=== PATIENT | female | born 1995 | race Two or more races ===

== ENCOUNTER 2018-07-06 18:14 | Emergency (ER) | payer MEDICAID, OTHER ==
[~2018-07-06] VITALS: Ht 167.6 cm; Wt 80.7 kg
[~2018-07-06 18:14] MED LIST: AMOXICILLIN500 MG ORAL; AUGMENTIN TAB875 MG ORAL; BACTRIM-DS1 EA ORAL; CEPHALEXIN500 MG ORAL; KEFLEX500 MG ORAL
[2018-07-06 18:25] VITALS: BP 111/69
[2018-07-06] MEDS ORDERED: prenatal vits (18:27)
--- NOTE | 2018-07-06 18:38 | Emergency Room Report ---
History of Present Illness General Chief Complaint: Pelvic Pain Source: Patient Present Illness HPI 23-year-old female presents to the emergency department complaining of 5 out of 10 in severity frontal headache 3 days with several episodes of lower abdominal cramping 3x today. Pt. reports nasal congestion, rhinorrhea and facial pressure x 3 days as well. pt. states she believes she has URI but wanted to check for UTI. Denies photophobia or acute onset of BUTTERFIELD. pt. states she has not taken any medications for her symptoms as she was not sure what she is allowed to take during . Patient reports that she is 17 weeks and has had IUP established, she states she is waiting to find out the sex of the baby. She does report some increase in urinary frequency she denies dysuria or hematuria. Patient denies vaginal bleeding or discharge. Patient denies fevers or chills. Patient is . No complications thus far in her , and no complications with previous . Denies trauma or fall. Denies N/V/C/D. Allergies: Coded Allergies: No Known Allergies (Verified Allergy, Unknown, 05/18/10) Patient History Past Medical History: see triage record Past Surgical History: none Pertinent Family History: none Last Menstrual Period: March 08, 2018 Now: Yes - 17 weeks : 2 Para: 1 Reviewed Nursing Documentation: PMH: Agreed; PSxH: Agreed Nursing Documentation-PMH Past Medical History: No Stated History Review of Systems All Other Systems: negative except mentioned in HPI Physical Exam Vital Signs Date Time Temp Pulse Resp B/P (MAP) Pulse Ox O2 Delivery O2 Flow Rate FiO2 07/06/18 18:22 98.2 87 18 111/69 100 Room Air Sp02 EP Interpretation: reviewed, normal General Appearance: no apparent distress, alert, GCS 15, non-toxic Head: normocephalic, atraumatic Eyes: bilateral eye normal inspection, bilateral eye PERRL, bilateral eye EOMI , bilateral eye other - no photophobia ENT: hearing grossly normal, normal voice, TMs + canals normal, uvula midline, nasal congestion, pharyngeal erythema - mild pharyngeal erythema no exudates Neck: full range of motion, no meningismus, no bony tend Respiratory: chest non-tender, lungs clear, normal breath sounds, no respiratory distress, no accessory muscle use, no wheezing, speaking full sentences Cardiovascular #1: regular rate, rhythm Gastrointestinal: normal bowel sounds, non tender, soft, non-distended, no guarding Genitourinary: normal inspection, no CVA tenderness Musculoskeletal: back normal, gait/station normal, normal range of motion, non- tender Neurologic: alert, oriented x3, responsive, motor strength/tone normal, sensory intact, normal gait, speech normal, grossly normal Psychiatric: judgement/insight normal Skin: normal color, no rash, warm/dry, well hydrated Lymphatic: no adenopathy Medical Decision Making PA Attestation Dr. barrera is my supervising Physician whom patient management has been discussed with. Diagnostic Impression: Primary Impression: Sinus headache Additional Impressions: Upper respiratory infection, viral Threatened miscarriage ER Course 23-year-old female presents to the emergency department complaining of 5 out of 10 in severity frontal headache 3 days with several episodes of lower abdominal cramping 3x today. Pt. reports nasal congestion, rhinorrhea and facial pressure x 3 days as well. pt. states she believes she has URI but wanted to check for UTI. Denies photophobia or acute onset of BUTTER[place]. pt. states she has not taken any medications for her symptoms as she was not sure what she is allowed to take during . Patient reports that she is 17 weeks and has had IUP established, she states she is waiting to find out the sex of the baby. She does report some increase in urinary frequency she denies dysuria or hematuria. Patient denies vaginal bleeding or discharge. Patient denies fevers or chills. Patient is . No complications thus far in her , and no complications with previous . Denies trauma or fall. Denies N/V/C/D. Ddx considered but are not limited to: , ectopic ,Spontaneous , Ovarian torsion, Ovarian cyst. PID, acute appendicitis, gall stones. Vital signs: are WNL, pt. is afebrile H&PE are most consistent with: URI with viral symptoms, noevidence of bacterial infection at this time. Will do urinalysis and check for UTI, no photophobia so meningitis is of low suspicion. As patient is not currently having any abdominal pain at this time and she denies vaginal bleeding or discharge I do not feel that an ultrasound would change my management of this patient in any way. Is nontoxic in appearance in no acute distress. Will perform bedside ultrasound to measure heart rate and evaluated for any free fluids. ORDERS: -Urine hcg- Positive - Blood/RH type and screen- see attached labs -Pelvic US Bedside: HR of 146ish- no free fluid noted. ED INTERVENTIONS: None at this time. - Tylenol PO -Reglan PO -pt. reports BUTTERFIELD has improved on re-assessment. Discussed with this patient that her symptoms are most likely which she initially thought to be upper respiratory infection. Discussed with this patient reusing for not performing full OB ultrasound and she verbalizes her agreement and understanding. patient was given strict ED return precautions and also instructed to have [facility] [employer] follow-up within 48 hours. DISCHARGE: At this time pt. is stable for d/c to home. Will provide printed patient care instructions, and any necessary prescriptions. Care plan and follow up instructions have been discussed with the patient prior to discharge. Labs Test 07/06/18 18:20 Urine Color Pale yellow Urine Appearance Clear Urine pH 6.5 (4.5-8.0) Urine Specific [place] 1.010 (1.005-1.035) Urine Protein Negative (NEGATIVE) Urine Glucose (UA) Negative (NEGATIVE) Urine Ketones Negative (NEGATIVE) Urine Blood Negative (NEGATIVE) Urine Nitrite Negative (NEGATIVE) Urine Bilirubin Negative (NEGATIVE) Urine Urobilinogen Normal MG/DL (0.0-1.0) Urine Leukocyte Esterase 1+ (NEGATIVE) Urine RBC 0-2 /HPF (0 - 2) Urine WBC 2-4 /HPF (0 - 2) Urine Squamous Epithelial Cells Few /LPF (NONE/OCC) Urine Bacteria Few /HPF (NONE) Last Vital Signs Date Time Temp Pulse Resp B/P (MAP) Pulse Ox O2 Delivery O2 Flow Rate FiO2 07/06/18 18:22 98.2 87 18 111/69 100 Room Air Disposition: HOME, SELF-CARE Condition: Stable Scripts Cetirizine Hcl (ZYRTEC) 10 Mg Capsule 10 MG ORAL DAILY, #30 CAP 0 Refills Prov: Nelida Hardy 07/06/18 Acetaminophen* (TYLENOL EXTRA STRENGTH*) 500 Mg Tablet 500 MG ORAL Q6H PRN for Mild Pain/Temp > 100.5, #20 TAB 0 Refills Prov: Nelida Hardy 07/06/18 Patient Instructions: Upper Respiratory Infection, Adult, [id number] Additional Instructions: Take medications as directed. Follow up with a OBGYN within 3 days, even if your symptoms have resolved. Return sooner to ED if new symptoms occur, or current symptoms become worse. - Please note that this Emergency Department Report was dictated using [employer] consultant technology software, occasionally this can lead to erroneous entry secondary to interpretation by the dictation equipment. Nelida Hardy Jul 06, 2018 18:38
[2018-07-06 18:56] LABS: APPEARANCE,URINE CLEAR; BILIRUBIN, URINE NEGATIVE (NEGATIVE); COLOR,URINE PALE YELLOW; GLUCOSE, URINE (UA) NEGATIVE (NEGATIVE); KETONES,URINE NEGATIVE (NEGATIVE); LEUKOCYTE ESTERASE ,URINE 1+ (NEGATIVE); NITRITE,URINE NEGATIVE (NEGATIVE); PH,URINE 6.5 (4.5-8.0); PROTEIN,URINE NEGATIVE (NEGATIVE); UROBILINOGEN,URINE NORMAL MG/DL (0.0-1.0)
[2018-07-06] MEDS ORDERED: ZYRTEC10 M3 ORAL (19:32)
[2018-07-06] MEDS ORDERED: TYLENOL EXTRA500 MG ORAL (19:32)
[2018-07-06 19:55] VITALS: BP 111/69
== END 2018-07-06 19:55 | disposition home or self-care (01) ==
LOC: EMR 18:40
DX: O20.0 Threatened abortion (principal); O98.812 Other maternal infectious and parasitic diseases complicating pregnancy, second trimester; J06.9 Acute upper respiratory infection, unspecified; R51 Headache; Z3A.17 17 weeks gestation of pregnancy
CPT/HCPCS: 81003; 99284

== ENCOUNTER 2018-08-22 18:47 | Emergency (ER) | payer MEDICAID ==
[~2018-08-22] VITALS: Ht 167.6 cm; Wt 84.8 kg
[~2018-08-22 18:47] MED LIST changes: +CORTISPORIN EAR10 ML OTIC; +IBUPROFEN200 MG ORAL; +IBUPROFEN600 MG ORAL; +TYLENOL EXTRA500 MG ORAL; +ZYRTEC10 M3 ORAL; +prenatal vits
[2018-08-22 19:29] LABS: APPEARANCE,URINE CLEAR; BILIRUBIN, URINE NEGATIVE (NEGATIVE); COLOR,URINE PALE YELLOW; GLUCOSE, URINE (UA) NEGATIVE (NEGATIVE); KETONES,URINE NEGATIVE (NEGATIVE); LEUKOCYTE ESTERASE ,URINE 1+ (NEGATIVE); NITRITE,URINE NEGATIVE (NEGATIVE); PH,URINE 6 (4.5-8.0); PROTEIN,URINE NEGATIVE (NEGATIVE); UROBILINOGEN,URINE NORMAL MG/DL (0.0-1.0)
[2018-08-22 19:40] VITALS: BP 97/46
--- NOTE | 2018-08-22 19:40 | NUR ---
ED Nurse Note: Patient presents to ED c/o lower back pain for 1x day. Patient states she is 24 weeks . Patient AOx4, VSS, ambulatory with steady gait, no s/s of acute distress noted at this time. patient seen by ERMD at bedside. Patient reports 7/10 pain.
--- NOTE | 2018-08-22 20:41 | Emergency Room Report ---
History of Present Illness General Chief Complaint: Back Pain-No Injury Source: Patient Present Illness HPI 23-year-old female presents to the emergency department complaining of 8 out of 10 in severity low back pain since awakening this morning. Patient denies trauma or fall she denies fevers, chills, recent spinal procedures or urinary frequency, urgency or dysuria. Patient reports that she is 24 weeks and has had IUP established with her FRONT OFFICE ASSISTANT and sees her FRONT OFFICE ASSISTANT regularly. Patient denies abdominal pain or cramping she denies vaginal discharge or bleeding. Patient is with no prior complications in her previous . She denies nausea, vomiting, fevers or chills. Patient states that she has not attempted to take any medications for her symptoms. Allergies: Coded Allergies: No Known Allergies (Verified , 05/18/10) Patient History Past Medical History: see triage record Past Surgical History: none Pertinent Family History: none Now: Yes - 24 weeks : 2 Para: 1 Reviewed Nursing Documentation: PMH: Agreed; PSxH: Agreed Nursing Documentation-PMH Past Medical History: No Stated History Review of Systems All Other Systems: negative except mentioned in HPI Physical Exam Vital Signs Date Time Temp Pulse Resp B/P (MAP) Pulse Ox O2 Delivery O2 Flow Rate FiO2 08/22/18 19:07 98.2 76 18 97/46 99 Room Air Sp02 EP Interpretation: reviewed, normal General Appearance: no apparent distress, alert, GCS 15, non-toxic Head: normocephalic, atraumatic Eyes: bilateral eye normal inspection, bilateral eye PERRL ENT: hearing grossly normal, normal voice Neck: full range of motion Respiratory: lungs clear, normal breath sounds, speaking full sentences Cardiovascular #1: regular rate, rhythm Gastrointestinal: normal bowel sounds, non tender, soft, other - gravid Genitourinary: normal inspection, no CVA tenderness Musculoskeletal: back normal, gait/station normal, normal range of motion, non- tender, tender - mild paraspinal ttp to the lumbar musculature, no midline ttp, no step-off, no obvious deformities. Neurologic: alert, oriented x3, responsive, motor strength/tone normal, sensory intact, normal gait, speech normal, grossly normal Psychiatric: judgement/insight normal Skin: normal color, no rash, warm/dry, well hydrated Medical Decision Making PA Attestation Dr. barrera is my supervising Physician whom patient management has been discussed with. Diagnostic Impression: Primary Impression: Back pain Qualified Codes: M54.5 - Low back pain ER Course 23-year-old female presents to the emergency department complaining of 8 out of 10 in severity low back pain since awakening this morning. Patient denies trauma or fall she denies fevers, chills, recent spinal procedures or urinary frequency, urgency or dysuria. Patient reports that she is 24 weeks and has had IUP established with her FRONT OFFICE ASSISTANT and sees her FRONT OFFICE ASSISTANT regularly. Patient denies abdominal pain or cramping she denies vaginal discharge or bleeding. Patient is with no prior complications in her previous . She denies nausea, vomiting, fevers or chills. Patient states that she has not attempted to take any medications for her symptoms. Ddx considered but are not limited to: renal calculi, musculoskeletal injury, UTI/pyelo just to name a few. Vital signs: are WNL, pt. is afebrile H&PE are most consistent with: benign back pain approaching third trimester of . ORDERS: -UA: unremarkable -Pelvic US complete- normal intrauterine estimated at 22 weeks gestation HR 164. ED INTERVENTIONS: - Tylenol PO D/w pt. conservative treatment, and to follow up within 48-72 hours with her OBGYN. D/w pt. to return to the ED with worsening or new symptoms. DISCHARGE: At this time pt. is stable for d/c to home. Will provide printed patient care instructions, and any necessary prescriptions. Care plan and follow up instructions have been discussed with the patient prior to discharge. Labs Test 08/22/18 19:20 Urine Color Pale yellow Urine Appearance Clear Urine pH 6 (4.5-8.0) Urine Specific [place] 1.020 (1.005-1.035) Urine Protein Negative (NEGATIVE) Urine Glucose (UA) Negative (NEGATIVE) Urine Ketones Negative (NEGATIVE) Urine Blood Negative (NEGATIVE) Urine Nitrite Negative (NEGATIVE) Urine Bilirubin Negative (NEGATIVE) Urine Urobilinogen Normal MG/DL (0.0-1.0) Urine Leukocyte Esterase 1+ (NEGATIVE) Urine RBC 0-2 /HPF (0 - 2) Urine WBC 0-2 /HPF (0 - 2) Urine Squamous Epithelial Cells Few /LPF (NONE/OCC) Urine Bacteria Few /HPF (NONE) Urine Mucus Few /LPF (NONE/OCC) CT/MRI/US Diagnostic Results CT/MRI/US Diagnostic Results : Imaging Test Ordered: OB US Impression "Single live intrauterine . GOYO 15.4 cm. heart rate 164 bpm. Placenta is posterior. AUA 22 weeks 5 days. No gross anatomic abnormalities. No other abnormalities" Per official radiology report- Please see report for specific details. Last Vital Signs Date Time Temp Pulse Resp B/P (MAP) Pulse Ox O2 Delivery O2 Flow Rate FiO2 08/22/18 19:07 98.2 76 18 97/46 99 Room Air Disposition: HOME, SELF-CARE Condition: Stable Patient Instructions: Back Pain in Additional Instructions: Take medications as directed. Follow up with a OBGYN within 3 days, even if your symptoms have resolved. Return sooner to ED if new symptoms occur, or current symptoms become worse. - Please note that this Emergency Department Report was dictated using [employer] technology software, occasionally this can lead to erroneous entry secondary to interpretation by the dictation equipment. Nelida Hardy Aug 22, 2018 20:41
--- NOTE | 2018-08-22 20:57 | Diagnostic Imaging Report ---
EXAM: US Pelvis Complete, Transabdominal CLINICAL HISTORY: PAIN TECHNIQUE: Real-time transabdominal pelvic ultrasound (complete) with image documentation. COMPARISON: No relevant prior studies available. FINDINGS: Uterus/cervix: Cervix is long and closed, measuring 3.8 cm. Normal endometrial stripe thickness. No myometrial mass. Right ovary: Unremarkable. No mass. Normal blood flow. Left ovary: Unremarkable. No mass. Normal blood flow. Free fluid: No free fluid. Bladder: Unremarkable as visualized. Wall is normal thickness for degree of distention. Other findings: Single live intrauterine . GOYO 15.4 cm. heart rate 1 64 bpm. Placenta is posterior. AUA 22 weeks 5 days. No gross anatomic abnormalities. No other abnormalities. IMPRESSION: Single live intrauterine measuring 22 weeks 5 days by ultrasound. No abnormalities.
[2018-08-22] MEDS ORDERED: TYLENOL EXTRA500 MG ORAL (21:05)
--- NOTE | 2018-08-22 21:15 | NUR ---
ED Nurse Note: Patient cleared for discharge by HARRIS. Patient AOx4, VSS, ambulatory with steady gait, no s/s of acute distress noted at this time. patient provided with discharge instructions and medication prescriptions. Patient verbalized understanding. patient took all personal belongings with her. Patient has friend at bedside to take her home. Patient instructed to follow up with OBGYN in 3x days. Patient ID band removed.
[2018-08-22 23:20] VITALS: BP 107/55
== END 2018-08-22 21:15 | disposition home or self-care (01) ==
LOC: EMR 20:00
DX: O26.892 Other specified pregnancy related conditions, second trimester (principal); M54.5 Low back pain; Z3A.22 22 weeks gestation of pregnancy
CPT/HCPCS: 76856; 81003; 99284